=== PATIENT | female | born 1955 | race Caucasian/White ===

== ENCOUNTER 2021-01-18 08:45 | Day surgery (SDC) | payer MEDICARE, MEDICAID ==
[~2021-01-18] VITALS: Ht 152.4 cm; Wt 75.0 kg
[~2021-01-18 08:45] MED LIST: SODIUM CHLORIDE 0.9% 1,000 ML IV ONE
[2021-01-18] MEDS ORDERED: LIDOCAINE/PF 2% 5 ML VIAL IM ONE (08:46)
[2021-01-18] MEDS ORDERED: PROPOFOL 1% 20 ML VIAL IVP ONE (08:46)
[2021-01-18 09:47] LABS: COVID AG,FIA SOURCE NASOPHARYNGEAL
[2021-01-18] MEDS ORDERED: LEVO75 PO (10:24)
[2021-01-18] MEDS ORDERED: OMEP20 PO (10:24)
[2021-01-18] MEDS ORDERED: DULO60CA98 PO (10:24)
[2021-01-18] MEDS ORDERED: ISOS30TA92 PO (10:24)
[2021-01-18] MEDS ORDERED: SIMV-259 PO (10:24)
[2021-01-18] MEDS ORDERED: OMEG-135 PO (10:24)
[2021-01-18] MEDS ORDERED: GABA-1201 PO (10:24)
[2021-01-18] MEDS ORDERED: CHOL-35 PO (10:24)
[2021-01-18] MEDS ORDERED: HYDR50TA36 PO (10:24)
[2021-01-18] MEDS ORDERED: LOSA25TA21 PO (10:24)
[2021-01-18] MEDS ORDERED: GABA-1216 PO (10:24)
[2021-01-18] MEDS ORDERED: CARV12 PO (10:24)
== END 2021-01-18 13:25 | disposition home or self-care (01) ==
LOC: SURGERY 08:45
PROVIDERS: ATTEND Student in an Organized Health Care Education/Training Program
DX: R19.5 Other fecal abnormalities (principal); R19.7 Diarrhea, unspecified; K62.89 Other specified diseases of anus and rectum; K64.4 Residual hemorrhoidal skin tags; K57.30 Diverticulosis of large intestine without perforation or abscess without bleeding; K64.8 Other hemorrhoids; K44.9 Diaphragmatic hernia without obstruction or gangrene; K31.89 Other diseases of stomach and duodenum; K29.50 Unspecified chronic gastritis without bleeding; I12.9 Hypertensive chronic kidney disease with stage 1 through stage 4 chronic kidney disease, or unspecified chronic kidney disease; N18.9 Chronic kidney disease, unspecified; F32.9 Major depressive disorder, single episode, unspecified; G89.29 Other chronic pain; M54.9 Dorsalgia, unspecified; Z79.899 Other long term (current) drug therapy; Z98.890 Other specified postprocedural states
CPT/HCPCS: 45380; 43239; 87426; 88305; 88312; 88313; C1769; C9803; J2704; J3490